=== PATIENT | female | born 1945 | race Caucasian/White ===

== ENCOUNTER 2022-06-20 08:48 | Day surgery (SDC) | payer OTHER, MEDICARE ==
[2022-06-18 12:30] VITALS: BMI 27.8
[2022-06-20 11:00] VITALS: RESP 18; TEMP 97.8
[2022-06-20 11:23] VITALS: BP 124/69; PULSE 89
== END 2022-06-20 11:35 | disposition home or self-care (01) ==
LOC: FASU-ENDO 08:48
PROVIDERS: ATTEND Internal Medicine
PROC: 0DJD8ZZ Inspection of Lower Intestinal Tract, Via Natural or Artificial Opening Endoscopic (ICD-10-PCS; principal; 2022-06-20 10:19)
DX: K50.90 Crohn's disease, unspecified, without complications (principal); R19.4 Change in bowel habit; K57.30 Diverticulosis of large intestine without perforation or abscess without bleeding; K64.8 Other hemorrhoids
CPT/HCPCS: 82962; 88305-TC